=== PATIENT | male | born 1990 | race Caucasian/White ===

== ENCOUNTER 2017-01-03 19:12 | Emergency (ER) | payer OTHER ==
[~2017-01-03] VITALS: Ht 172.7 cm; Wt 79.8 kg
[~2017-01-03 19:12] MED LIST: ADVIN50/60 INH; ALBU1AER9 INH; IBUP200C11 PO
[2017-01-03 19:16] VITALS: TEMP 36.7; Ht 172.7 cm; Wt 79.8 kg
[2017-01-03] MEDS ORDERED: PRLSR20 PO (19:52)
[2017-01-03] MEDS ORDERED: VNTHFA/IN INH (19:52)
--- NOTE | 2017-01-03 20:04 | EMERGENCY ROOM VISIT NOTE ---
History Report prepared by Gayle: Dianna Sloan Under the Supervision of: Dr. Zay Redd M.D. First contact with patient: 19:37 Chief Complaint: BLEEDING Stated Complaint: BLEEDING History of Present Illness The patient is a 26 year old male who presents to the Emergency Room with complaints of intermittent rectal bleeding for the past month. He states that every time he has a bowel movement he experiences bright red rectal bleeding. He estimates that he has a bowel movement twice a day and has bleeding each time. He rates his pain as a 4/10 in severity. The patient saw his PCP for these symptoms a few weeks ago and was diagnosed with hemorrhoids. He was using a hemorrhoid cream but states that it didn't seem to be helping. The patient denies abdominal pain. He has never had a colonoscopy. Source of History: patient Onset: 1 month ago Position: other (rectum) Symptom Intensity: 4/10 Quality: other (bleeding) Timing: intermittent Modifying Factors (Worsening): defecation Associated Symptoms: No abdominal pain Review of Systems See HPI for pertinent positives & negatives. A total of 10 systems reviewed and were otherwise negative. Past Medical & Surgical Medical Problems: (1) Asthma Family History No significant family history Social History Smoking Status: Current Every Day Smoker Alcohol Use: occasionally Marital Status: Housing Status: lives with significant other Occupation Status: employed Current/Historical Medications Scheduled Albuterol Hfa (Ventolin Hfa), 2-4 PUFFS INH Q6H Fluticasone Prop/Salmeterol (Advair Diskus 500/50 60 Dose), 1 PUFF INH BID Omeprazole (Prilosec), 20 MG PO DAILY Scheduled PRN Ibuprofen (Advil Migraine), 200 MG PO QID PRN for Migraine Allergies Coded Allergies: Nortriptyline (Verified Adverse Reaction, Unknown, suicidal thoughts., 01/03) Physical Exam Vital Signs Date Time Temp Pulse Resp B/P Pulse Ox O2 Delivery O2 Flow Rate FiO2 01/03/17 21:29 70 16 125/76 96 01/03/17 19:16 36.7 65 16 122/75 100 Physical Exam GENERAL: Patient is a healthy-appearing well-nourished 26 year old male. HEAD: Normocephalic atraumatic EYES: Ocular movements intact pupils equal and react to light OROPHARYNX mucous membranes are moist no exudates present no erythema or edema present NECK: Supple no nuchal rigidity CHEST: Good equal expansion LUNGS: Clear and equal to auscultation CARDIAC: Normal S1 and S2 ABDOMEN: Soft nontender no guarding BACK: No CVA tenderness RECTAL: External hemorrhoid present, heme positive stool, no gross blood. EXTREMITIES: No pain upon palpation normal muscle strength in all groups no clubbing cyanosis or edema NEURO: Patient is following commands is answering questions appropriately. Alert and oriented x3 Cranial Nerves 2-12 grossly intact Medical Decision & Procedures ER Provider Diagnostic Interpretation: Radiology results as stated below per my review and radiologist interpretation: KUB CLINICAL HISTORY: Pt c/o rectal bleed rectal bleeding COMPARISON STUDY: No previous studies for comparison. FINDINGS: The soft tissues, psoas shadows, renal outlines and intestinal gas pattern appear normal. There is no evidence for bowel obstruction. No abnormal abdominal calcifications are seen. IMPRESSION: Normal study. Electronically signed by: Pipo Smith M.D. 01/03/2017 9:01 PM Dictated Date/Time: 01/03/2017 9:00 PM Laboratory Results 01/03/17 20:17 Red Blood Count 4.70, Mean Corpuscular Volume 84.0, Mean Corpuscular Hemoglobin 31.5, Mean Corpuscular Hemoglobin Concent 37.5, Mean Platelet Volume 10.0, Neutrophils (%) (Auto) 53.6, Lymphocytes (%) (Auto) 35.3, Monocytes (%) (Auto) 8.3, Eosinophils (%) (Auto) 2.1, Basophils (%) (Auto) 0.6, Neutrophils # (Auto) 3.90, Lymphocytes # (Auto) 2.56, Monocytes # (Auto) 0.60, Eosinophils # (Auto) 0.15, Basophils # (Auto) 0.04 01/03/17 20:17 Test 01/03/17 20:17 01/03/17 20:37 White Blood Count 7.26 K/uL (4.8-10.8) Red Blood Count 4.70 M/uL (4.7-6.1) Hemoglobin 14.8 g/dL (14.0-18.0) Hematocrit 39.5 % (42-52) Mean Corpuscular Volume 84.0 fL (80-100) Mean Corpuscular Hemoglobin 31.5 pg (25-34) Mean Corpuscular Hemoglobin Concent 37.5 g/dl (32-36) Platelet Count 178 K/uL (130-400) Mean Platelet Volume 10.0 fL (7.4-10.4) Neutrophils (%) (Auto) 53.6 % Lymphocytes (%) (Auto) 35.3 % Monocytes (%) (Auto) 8.3 % Eosinophils (%) (Auto) 2.1 % Basophils (%) (Auto) 0.6 % Neutrophils # (Auto) 3.90 K/uL (1.4-6.5) Lymphocytes # (Auto) 2.56 K/uL (1.2-3.4) Monocytes # (Auto) 0.60 K/uL (0.11-0.59) Eosinophils # (Auto) 0.15 K/uL (0-0.5) Basophils # (Auto) 0.04 K/uL (0-0.2) RDW Standard Deviation 35.9 fL (36.4-46.3) RDW Coefficient of Variation 11.6 % (11.5-14.5) Immature Granulocyte % (Auto) 0.1 % Immature Granulocyte # (Auto) 0.01 K/uL (0.00-0.02) Anion Gap 10.0 mmol/L (3-11) Est Creatinine Clear Calc Drug Dose 91.0 ml/min Estimated GFR () 96.8 Estimated GFR (Non- 83.5 BUN/Creatinine Ratio 12.9 (10-20) Calcium Level 8.8 mg/dl (8.5-10.1) Total Bilirubin 0.3 mg/dl (0.2-1) Direct Bilirubin < 0.1 mg/dl (0-0.2) Aspartate Amino Transf (AST/SGOT) 28 U/L (15-37) Alanine Aminotransferase (ALT/SGPT) 29 U/L (12-78) Alkaline Phosphatase 87 U/L (45-117) Total Protein 6.8 gm/dl (6.4-8.2) Albumin 3.8 gm/dl (3.4-5.0) Lipase 336 U/L (73-393) Urine Color YELLOW Urine Appearance CLEAR (CLEAR) Urine pH 6.0 (4.5-7.5) Urine Specific [place] 1.021 (1.000-1.030) Urine Protein NEG (NEG) Urine Glucose (UA) NEG (NEG) Urine Ketones NEG (NEG) Urine Occult Blood NEG (NEG) Urine Nitrite NEG (NEG) Urine Bilirubin NEG (NEG) Urine Urobilinogen NEG (NEG) Urine Leukocyte Esterase NEG (NEG) Labs reviewed by ED physician. ED Course 1936: Past medical records reviewed. The patient was evaluated in room C12B. A complete history and physical examination was performed. 2115: I reassessed the patient at this time. He is feeling better and resting comfortably. I discussed the results and treatment plan with the patient. I answered all pertaining questions that he had. He expressed understanding and verbalized agreement. The patient will be discharged home. Medical Decision Differential diagnosis: Etiologies such as diverticulosis, AVM, coagulopathy, colitis, inflammatory bowel disease, malignancy, Anjali-Ma tear, esophagitis, peptic ulcer disease , variceal bleed, gastritis, epistaxis, fissure, hemorrhoids, as well as others were entertained. This is a 26-year-old male who presents emergency department complaining of rectal bleeding that has been ongoing for the past month. The patient does have a hemorrhoid on examination however I stressed the need for follow-up with gastroenterology. He is stable hemoglobin. The patient does appear to be slightly constipated on x-ray and I recommended a MiraLAX cleanout as well as follow-up with gastroenterology. Serial abdominal examinations were performed on the patient in the emergency department and at no time did the patient exhibit a surgical abdomen. I believe based on these findings at the patient is well enough to be discharged home for follow-up with his primary care physician. Patient was in agreement with the treatment plan. Impression Primary Impression: Rectal bleed Additional Impressions: Bleeding hemorrhoid Constipation Scribe Attestation The scribe's documentation has been prepared under my direction and personally reviewed by me in its entirety. I confirm that the note above accurately reflects all work, treatment, procedures, and medical decision making performed by me. Departure Information Dispostion Home / Self-Care Referrals Tom Masterson M.D.(DAMIEN) (PCP) Karen Tobin, DO Forms HOME CARE DOCUMENTATION FORM, IMPORTANT VISIT INFORMATION Patient Instructions GI Bleeding - [facility], My [facility] Additional Instructions Take 10 oz bottle of miralax; Add to 16 oz of gatorade Drink continuously until moving creamy stools Clear liquid diet for next 48 hours Follow up with Dr Tobin's office You have been examined and treated today on an emergency basis only. This is not a substitute for, or an effort to provide, complete comprehensive medical care. It is impossible to recognize and treat all injuries or illnesses in a single emergency department visit. It is therefore important that you follow up closely with Dr Masterson. Call as soon as possible for an appointment. Thank you for your time and consideration. I look forward to speaking with you again soon. Please don't hesitate to call us if you have any questions. Problem Qualifiers Additional Impressions: Constipation Constipation type: unspecified constipation type Qualified Codes: K59.00 - Constipation, unspecified
[2017-01-03 20:30] LABS: BASO % 0.6 %; BASO ABS # 0.04 K/uL (0-0.2); COMPLETE YES; EOS % 2.1 %; HEMATOCRIT 39.5 % (42-52); IG% 0.1 %; LYMPH % 35.3 %; LYMPH ABS # 2.56 K/uL (1.2-3.4); MEAN CORPUSCULAR HEMOGLOBIN 31.5 pg (25-34); MEAN CORPUSCULAR HGB CONC 37.5 g/dl (32-36); MONO % 8.3 %; NEUT % 53.6 %; PLATELET COUNT 178 K/uL (130-400); WHITE BLOOD COUNT 7.26 K/uL (4.8-10.8)
[2017-01-03 20:49] LABS: ALT/SGPT 29 U/L (12-78); BLOOD UREA NITROGEN 16 mg/dl (7-18); BUN/CREATININE RATIO 12.9 (10-20); CALCIUM 8.8 mg/dl (8.5-10.1); CARBON DIOXIDE 25 mmol/L (21-32); CHLORIDE 107 mmol/L (98-107); GLUCOSE 100 mg/dl (70-99); POTASSIUM 3.7 mmol/L (3.5-5.1); SODIUM 142 mmol/L (136-145)
[2017-01-03 20:52] LABS: ALKALINE PHOSPHATASE 87 U/L (45-117); AST/SGOT 28 U/L (15-37)
--- NOTE | 2017-01-03 21:02 | DIAGNOSTIC IMAGING REPORT ---
KUB CLINICAL HISTORY: Pt c/o rectal bleed rectal bleeding COMPARISON STUDY: No previous studies for comparison. FINDINGS: The soft tissues, psoas shadows, renal outlines and intestinal gas pattern appear normal. There is no evidence for bowel obstruction. No abnormal abdominal calcifications are seen. IMPRESSION: Normal study. Electronically signed by: Pipo Smith M.D. 01/03/2017 9:01 PM Dictated Date/Time: 01/03/2017 9:00 PM
[2017-01-03 21:17] LABS: URINE APPEARANCE CLEAR (CLEAR); URINE BILIRUBIN NEG (NEG); URINE COLOR YELLOW; URINE NITRITE NEG (NEG); URINE SPECIFIC GRAVITY 1.021 (1.000-1.030); UROBILINOGEN NEG (NEG)
[2017-01-03 21:24] LABS: MANUAL MICROSCOPIC REQUIRED? NO; REVIEW REQ? NO
[2017-01-03 21:29] VITALS: BP 125/76; PULSE 70; O2SAT 96
== END 2017-01-03 21:21 | disposition home or self-care (01) ==
LOC: C.EDB 19:13 → C.EDC 21:21
DX: K62.5 Hemorrhage of anus and rectum (principal); K59.00 Constipation, unspecified; K64.9 Unspecified hemorrhoids